=== PATIENT | male | born 2000 | race Caucasian/White ===

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

== ENCOUNTER 2020-02-03 19:00 | Emergency (ER) | payer MEDICAID ==
[~2020-02-03] VITALS: Ht 170.2 cm; Wt 57.6 kg
[2020-02-03 19:21] VITALS: BP 130/81; Ht 170.2 cm; Wt 57.6 kg
== END 2020-02-03 20:38 | disposition home or self-care (01) ==
LOC: ED 19:00
DX: M54.5 Low back pain (principal); J45.909 Unspecified asthma, uncomplicated

== ENCOUNTER 2020-03-31 22:34 | Emergency (ER) | payer MEDICAID ==
[~2020-03-31] VITALS: Ht 167.6 cm; Wt 58.5 kg
[2020-03-31 22:44] VITALS: Ht 167.6 cm; Wt 58.5 kg
[2020-03-31] MEDS ORDERED: IBU400 M2 PO (23:05)
[2020-03-31 23:26] VITALS: BP 113/83
== END 2020-03-31 23:26 | disposition home or self-care (01) ==
LOC: ED 22:34
DX: S16.1XXA Strain of muscle, fascia and tendon at neck level, initial encounter (principal); M62.838 Other muscle spasm; J45.909 Unspecified asthma, uncomplicated; X58.XXXA Exposure to other specified factors, initial encounter; Y93.89 Activity, other specified; Y92.89 Other specified places as the place of occurrence of the external cause; Y99.8 Other external cause status